=== PATIENT | male | born 1965 | race Caucasian/White ===

== ENCOUNTER 2017-11-08 12:17 | Emergency (ER) | payer BC ==
[~2017-11-08] VITALS: Ht 188 cm; Wt 101.4 kg
[~2017-11-08 12:17] MED LIST: ALEVE; ANUSOL-HC SUPPO25 MG RC; MULTIPLE VITAMI1 TA5 PO; NORCO 325 MG-7.1 TAB PO; PEPCID 20MG TAB20 MG PO; PEPCID AC20 MG PO; TYLENOL 325MG325 MG PO
[2017-11-08 12:18] VITALS: TEMP 97.8
[2017-11-08 13:11] LABS: BASO # 0.1 (0.0-0.2); BASO % 0.6 % (0.0-2.0); EOS # 0.1 (0.0-0.7); GRAN # 7.5 (1.4-6.5); GRAN % 72.5 % (42.2-75.2); HEMATOCRIT 40.9 % (42.0-52.0); HEMOGLOBIN 15.1 g/dl (13.5-18.0); LYMPH # 1.7 (1.2-3.4); LYMPH % 16.2 % (20.0-51.0); MEAN CELL VOLUME 83 fl (80.0-100.0); MEAN CORPUSCULAR HEMOGLOBIN 31 pg (27.0-31.0); MEAN CORPUSCULAR HGB CONC 37 g/dl (33.0-37.0); MEAN PLATELET VOLUME 10.2 fl (7.4-10.4); MONO # 0.9 (0.1-0.6); MONO % 8.6 % (1.7-9.3); PLATELET COUNT 209 K/mm3 (130-400); RED BLOOD COUNT 4.91 M/mm3 (4.20-5.60); REDCELL DISTRIBUTION WIDTH-CV 12.3 % (11.5-14.5)
[2017-11-08 13:24] LABS: ALBUMIN 3.9 gm/dL (3.5-5.0); BILIRUBIN,TOTAL 0.6 mg/dL (0.0-1.0); C-REACTIVE PROTEIN 0.6 mg/dL (0.0-0.9); CALCIUM 8.9 mg/dL (8.4-10.2); CREATININE, serum 0.85 mg/dL (0.66-1.25); POTASSIUM 4.2 mmol/L (3.4-5.0); TOTAL PROTEIN 6.7 gm/dL (6.4-8.2)
[2017-11-08 15:40] VITALS: BP 114/78; PULSE 74
== END 2017-11-08 15:40 | disposition short-term general hospital (02) ==
LOC: COL.ER 12:17
PROVIDERS: Emergency Medicine
DX: S32.029A Unspecified fracture of second lumbar vertebra, initial encounter for closed fracture (principal); Z87.442 Personal history of urinary calculi; Z88.6 Allergy status to analgesic agent; X50.0XXA Overexertion from strenuous movement or load, initial encounter
CPT/HCPCS: J2060; J2270; J7030

== ENCOUNTER 2018-02-10 10:00 | Outpatient (RCR) | payer BC | END 2018-03-04 15:15 | disposition home or self-care (01) | LOC: MKS.ESL.PT 10:00 | DX: S32.020D Wedge compression fracture of second lumbar vertebra, subsequent encounter for fracture with routine healing (principal); X50.0XXD Overexertion from strenuous movement or load, subsequent encounter | CPT/HCPCS: G0283-GP ==